=== PATIENT | male | born 1990 | race Caucasian/White ===

== ENCOUNTER 2017-07-10 11:13 | Emergency (ER) | payer BC ==
[~2017-07-10] VITALS: Ht 177.8 cm; Wt 90.7 kg
[2017-07-10 11:34] VITALS: BP 152/81
== END 2017-07-10 12:50 | disposition home or self-care (01) ==
LOC: ER 11:16
DX: L51.1 Stevens-Johnson syndrome (principal); L56.8 Other specified acute skin changes due to ultraviolet radiation; F31.9 Bipolar disorder, unspecified
CPT/HCPCS: A4606; Z7502; Z7610